=== PATIENT | female | born 1940 | race Caucasian/White ===

== ENCOUNTER → 2017-07-16 13:58 | Outpatient (CLI) | payer MEDICARE, BC, SELFPAY ==
--- NOTE | 2017-07-16 14:00 | HPBI_ITS ---
MAMMOGRAPHY - BILATERAL SCREENING REASON FOR EXAM: Female, 76 years old. Routine annual screening examination. PERTINENT HISTORY: Non-contributory. TECHNIQUE: Digital bilateral breast prashanth (3D mammographic acquisition) in the CC and MLO projections. 2-D mediolateral oblique (MLO) and craniocaudad (CC) views of both breasts were obtained. CAD: Full Field Digital Mammography with Computer Added Detection was performed. COMPARISON: Comparison is made with prior examination dated March 19, 2016 and March 17, 2015. FINDINGS: Breast Composition: The breasts are almost entirely fatty. There are no dominant masses or suspicious calcifications. No other significant abnormalities are identified. There has been no significant change since the prior study. HPBI/SCREENING MAMM (CAD), BILAT IMPRESSION: Stable bilateral screening mammogram. Yearly follow-up mammogram recommended. (A) ASSESSMENT CATEGORY: BIRADS Category 1: Negative. A letter regarding these results will be sent to the patient by the facility within 30 days. Approximately 10% of breast cancers are not detected by mammography. A normal mammogram should not delay biopsy of a clinically suspicious abnormality. [id number] Electronically Signed: Yimi Leonard MD at 15:35 EST Tel [phone], Service support ,
== END ==
PROVIDERS: Family Provider Nurse Practitioner Family; PCP Nurse Practitioner Family; Visit Provider Nurse Practitioner Family
DX: Z12.31 Encounter for screening mammogram for malignant neoplasm of breast (principal)
CPT/HCPCS: 77063; 77067

== ENCOUNTER → 2017-07-28 15:03 | Outpatient (CLI) | payer MEDICARE, BC, SELFPAY ==
[2017-07-28 17:09] LABS: Anion Gap 10 (5-15); BUN 28 mg/dL (7-18); BUN/Creat Ratio 18.1 RATIO (10-20); Calcium,Total 8.7 mg/dL (8.5-10.1); Chloride 101 mmol/L (98-107); Creatinine, Serum 1.55 mg/dL (0.55-1.02); EST Glomerular Filtration Rate 35 mL/min (>60); Est Glom Filt Rate - Afr Amer 42 mL/min (>60); Glucose 384 mg/dL (74-106); Potassium 4.2 mmol/L (3.5-5.1); Sodium Level 136 mmol/L (136-145)
[2017-07-28 17:16] LABS: Hemoglobin A1c 8.6 % (4.2-6.3)
[2017-07-28 17:36] LABS: Microalbumin,Random Urine 34.4 mg/L (NO RANGE EST.); Microalbumin:Creatinine Ratio 43.6 mg/g CRE (<30 mg/g CRE)
== END ==
PROVIDERS: Family Provider Nurse Practitioner Family; PCP Nurse Practitioner Family; Visit Provider Internal Medicine
DX: E11.22 Type 2 diabetes mellitus with diabetic chronic kidney disease (principal); N18.3 Chronic kidney disease, stage 3 (moderate)
CPT/HCPCS: 36415; 80048; 82043; 82570; 83036

== ENCOUNTER → 2017-12-08 17:17 | Outpatient (CLI) | payer MEDICARE, BC, SELFPAY ==
[2017-12-08 18:10] LABS: ALB/GLOB Ratio 0.8 RATIO (0.9-2.4); AST(SGOT) 11 U/L (15-37); Alanine Aminotransfer ALT/SGPT 15 U/L (13-56); Albumin, Serum 3.4 g/dL (3.2-5.0); Alkaline Phosphatase 83 U/L (45-117); Anion Gap 10 (5-15); BUN 36 mg/dL (7-18); BUN/Creat Ratio 21.6 RATIO (10-20); Calcium,Total 8.9 mg/dL (8.5-10.1); Chloride 106 mmol/L (98-107); Creatinine, Serum 1.67 mg/dL (0.55-1.02); EST Glomerular Filtration Rate 32 mL/min (>60); Est Glom Filt Rate - Afr Amer 38 mL/min (>60); Globulin 4.3 g/dL (2.2-4.2); Glucose 81 mg/dL (74-106); Potassium 4.2 mmol/L (3.5-5.1); Protein, Total 7.7 g/dL (6.4-8.2); Sodium Level 141 mmol/L (136-145)
[2017-12-08 18:15] LABS: Erythrocyte Sedimentation Rate 48 mm/hr (0-30)
[2017-12-08 18:42] LABS: Absolute Lymphocyte Count 1.55 X10^3/ul (0.83-4.51); Basophil# 0.02 X10^3/uL; Basophil% 0.2 % (0-1); Eosinophil# 0.07 X10^3/uL; Eosinophils% 0.6 % (0-5); Hematocrit 35.9 % (37-47); Hemoglobin 11.8 g/dl (12.0-15.0); Lymphocyte # 1.55 X10^3/ul (4.0); Lymphocyte % 13.5 % (19-41); Mean Corp Hgb Conc 32.9 g/gl (32-36); Mean Corpuscular Hgb 29.6 pg (27.0-32.0); Mean Corpuscular Volume 90.2 fL (81-99); Mean Platelet Vol. 9.4 fl (6.2-12.0); Monocyte# 0.81 X10^3/uL; Neutrophil # 8.98 X10^3/uL (2.7-7.7); Neutrophil % 78.1 % (47-70); RBC Distribution Width CV 12.8 % (11.6-14.6); Red Blood Count 3.98 M/mm3 (4.2-5.4); White Blood Count 11.5 K/mm3 (4.4-11.0)
[2017-12-08 18:46] LABS: Differential Indicated SCAN CRITERIA MET; POSITIVE COUNT YES; POSITIVE DIFFERENTIAL NO; POSITIVE MORPHOLOGY NO
[2017-12-08 18:59] LABS: Hemoglobin A1c 9.2 % (4.2-6.3)
[2017-12-08 20:12] LABS: Platelet Estimate ADEQUATE (ADEQ)
== END ==
PROVIDERS: Family Provider Family Medicine; PCP Family Medicine; Visit Provider Podiatrist
DX: L03.119 Cellulitis of unspecified part of limb (principal)
CPT/HCPCS: 80053; 83036; 85025; 85652; 86140

== ENCOUNTER 2017-12-16 08:23 | Outpatient (RCR) | payer MEDICARE, BC, SELFPAY ==
[2017-12-16 08:54] VITALS: BP 155/66; PULSE 88; RESP 18; TEMP 36.3; BMI 26.5
--- NOTE | 2017-12-16 09:52 | PCM.WC.HP ---
(1) Leg swelling Status: Chronic Current Visit: Yes Code(s): M79.89 - Other specified soft tissue disorders (2) Edema of both legs Status: Chronic Current Visit: Yes Code(s): R60.0 - Localized edema (3) Chronic venous insufficiency Status: Chronic Current Visit: Yes Code(s): I87.2 - Venous insufficiency (chronic) (peripheral) (4) Venous stasis dermatitis of both lower extremities Status: Chronic Current Visit: Yes Code(s): I87.2 - Venous insufficiency (chronic) (peripheral) (5) Dependent edema Status: Chronic Current Visit: Yes Code(s): R60.9 - Edema, unspecified (6) Type 2 diabetes mellitus Status: Chronic Current Visit: No Code(s): E11.9 - Type 2 diabetes mellitus without complications (7) History of colon cancer Status: Chronic Current Visit: No Code(s): Z85.038 - Personal history of other malignant neoplasm of large intestine (8) History of uterine cancer Status: Chronic Current Visit: No Code(s): Z85.42 - Personal history of malignant neoplasm of other parts of uterus (9) Glaucoma Status: Chronic Current Visit: No Code(s): H40.9 - Unspecified glaucoma (10) History of skin cancer Status: Chronic Current Visit: No Code(s): Z85.828 - Personal history of other malignant neoplasm of skin (11) GERD (gastroesophageal reflux disease) Status: Chronic Current Visit: No Code(s): K21.9 - Gastro-esophageal reflux disease without esophagitis (12) Hypertension Status: Chronic Current Visit: No Code(s): I10 - Essential (primary) hypertension (13) Diabetes Status: Chronic Current Visit: No Code(s): E11.9 - Type 2 diabetes mellitus without complications (14) Hyperlipidemia Status: Chronic Current Visit: No Code(s): E78.5 - Hyperlipidemia, unspecified (15) Macular degeneration Status: Chronic Current Visit: No Code(s): H35.30 - Unspecified macular degeneration History of Present Illness Date of Service: 12/16/17 Chief Complaint: Bilateral lower extremity swelling and edema; chronic venous insufficiency; dependent edema, chronic venous stasis dermatitis History of Wound: This is a 77-year-old diabetic white female with multiple medical problems. She presents with a 2-3 month history of swelling, edema, and found dermatitic changes in the lower extremities bilaterally. In recent months, the patient has begun sleeping in a recliner. She claims to be relatively active, but spends long periods each day in an idle sitting position. She has recently been treated for cellulitis by her local candle molder hand, and is currently taking Augmentin. She denies a history of thrombophlebitis. Past Medical History Past Medical History: Chronic Problems (Last Updated 07/08/17 @ 11:08 by Terri Ramos) Leg swelling (Chronic) Edema of both legs (Chronic) Chronic venous insufficiency (Chronic) Venous stasis dermatitis of both lower extremities (Chronic) Dependent edema (Chronic) Hyperlipidemia (Chronic) Macular degeneration (Chronic) CKD (chronic kidney disease), stage III (Chronic) Type 2 diabetes mellitus (Chronic) History of colon cancer (Chronic) History of uterine cancer (Chronic) Glaucoma (Chronic) History of skin cancer (Chronic) Seasonal allergies (Chronic) GERD (gastroesophageal reflux disease) (Chronic) Hypertension (Chronic) Diabetes (Chronic) Past Medical History: The patient's history is negative for myocardial infarction, congestive heart failure, renal disease, pulmonary disease, and thyroid disease. Her history is positive for diabetes mellitus, colon cancer, basal cell cancer, hypertension, hyperlipidemia, glaucoma, and macular degeneration. Surgical History: - - The patient has previously undergone hysterectomy. She has a history of partial colectomy for colon cancer. She has had basal cell cancers excised. Allergies/Adverse Reactions: Allergies No Known Allergies Allergy (Verified 12/16/17 09:08) Home Medications: Ambulatory Orders Medication Instructions Recorded lisinopril 20 mg tablet 20 mg PO QDAY #90 tab 06/20/17 glimepiride 4 mg tablet 4 mg PO BID #120 tab 07/21/17 sitagliptin 100 mg tablet 100 mg PO QDAY #90 tab 07/29/17 Aspirin E.C. [Ecotrin] 81 mg PO DAILY@0800 12/16/17 Brimonidine 0.15% [Alphagan P 1 drop OPHTHALMIC BID 12/16/17 0.15%] Dorzolamide 2% [Trusopt] 1 drop EACH EYE BID 12/16/17 Latanoprost 0.005% [Xalatan 1 drop EACH EYE QHS 12/16/17 Opthalmic] Potassium Chloride [K-Dur] 10 meq PO DAILY 12/16/17 Triamterene/Hydrochlorothiazid 1 each PO DAILY 12/16/17 [Triamterene-Hctz 37.5-25 mg Cp] Vit C/Vit E AC/Lut/Copper/Zinc 2 cap PO DAILY 12/16/17 [Preservision Lutein Softgel] - Family History Paternal Family History: Family History (Last Updated 07/08/17 @ 11:08 by Terri Ramos) Mother Heart disease Father Parkinsons Social History: The patient is and lives with her . 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 She denies use of alcohol and tobacco products. Lives: Spouse/ Significant Other Smoking Status: Never smoker Tobacco Use: Non-smoker Alcohol: None Drugs: None Review of Systems Constitutional: Denies: Chills, Fever, Weight Change Eyes: Denies: Pain, Vision Change HEENT: Denies: Difficulty Hearing, Difficulty Swallowing, Sinus Congestion Cardiovascular: Denies: Chest Pain, Palpitations Respiratory: Denies: Cough, Shortness of Breath Gastrointestinal: Denies: Diarrhea, Nausea, Vomiting Genitourinary: Denies: Dysuria, Hematuria Endocrine: Denies: Heat/ Cold Intolerance, Polydipsia, Polyuria Hematologic/ Lymphatic: Denies: Easy Bruising, Easy Bleeding - Physical Exam Vital Signs Temp Pulse Resp BP 97.3 F L 88 18 155/66 H 12/16/17 08:54 12/16/17 08:54 12/16/17 08:54 12/16/17 08:54 General: Alert, Oriented x3, Cooperative, No apparent distress, Well developed, Well nourished HEENT: Atraumatic, PERRLA, EOMI, Normocephalic Oral: Moist Mucosa, No Gingival or Mucosal Lesions/ Ulcerations Neck: Supple, No JVD, Negative Carotid Bruits, Negative Hepatojugular Reflux, No Nodes, No Nuchal Rigidity, Trachea Midline Lungs: Clear to auscultation, Normal air movement, No rhonchi, No wheeze, No rales Cardiovascular: Regular rate, Regular Rhythm, Normal S1, Normal S2, No murmurs Abdomen: Soft, Non Tender, Non-Distended Extremities: No clubbing, No cyanosis, No Calf Tenderness, Edema, - - Moderate swelling and edema is noted in the lower extremities bilaterally. A diffuse, erythematous dermatitis is noted in the lower extremities bilaterally in the gaiter areas. There are no sylvia open wounds or ulcerations. Circumference measurements are documented elsewhere. Wound Measurements and Assessment WC - Nurse 1 - General Ulcer Measurement Start: 12/16/17 08:41 Freq: Status: Active Protocol: Activity Type Activity Date Activity User E-Sign Co-Sign Detail Recorded Client Recorded Date Recorded By Document 12/16/17 08:54 [id number] 12/16/17 09:08 12/16/17 08:54 Wound Center Nurse 1 [Edema Assessment] -Lower Limb Edema Present Yes -Right Calf (cm) 41.0 -Right Ankle (cm) 25.6 -Left Calf (cm) 44.2 -Left Ankle (cm) 25.6 WC - Nurse 2 - General Ulcer CM Notes Start: 12/16/17 08:41 Freq: Status: Active Protocol: Activity Type Activity Date Activity User E-Sign Co-Sign Detail Recorded Client Recorded Date Recorded By Document 12/16/17 09:29 [id number] 12/16/17 09:49 12/16/17 09:29 Pain Scale: 0-10 Numeric [Pain] -Is Patient Pain Free? Yes Musculoskeletal: No Muscle Wasting Neurological: Cranial nerves II-XII grossly intact, Neuro grossly intact Psych/Mental Status: Normal Affect, Appropriate, Alert and oriented to time, place, person, mood and affect Debridement Note Post-Debridement Measurements/Treatment WC - Nurse 2 - General Ulcer CM Notes Start: 12/16/17 08:41 Freq: Status: Active Protocol: Activity Type Activity Date Activity User E-Sign Co-Sign Detail Recorded Client Recorded Date Recorded By Document 12/16/17 09:29 [id number] 12/16/17 09:49 12/16/17 09:29 Pain Scale: 0-10 Numeric Is Patient Pain Free? Yes No debridement was completed today Assessment/Plan Active Problems (Last Updated 07/08/17 @ 11:08 by Terri Ramos) Leg swelling (Chronic) Edema of both legs (Chronic) Chronic venous insufficiency (Chronic) Venous stasis dermatitis of both lower extremities (Chronic) Dependent edema (Chronic) Assessment: This is a 77-year-old female with multiple medical problems, which have been documented above. She presents with 2-3 months of swelling, edema, and dermatitic changes in the lower extremities bilaterally. 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 The patient sleeps in a recliner, with her legs in a dependent position. She spends long hours each day in an idle sitting position. She claims to be relatively active, however. The patient has undergone laboratory studies, with results as follows: White blood count 11.5, hemoglobin 11.8, hematocrit 35.9, platelets TNP; sodium 141, potassium 4.2, chloride 106, BUN 36, creatinine 1.67, calcium 8.9, total protein 7.7, albumin 3.4, total bilirubin 0.50, AST 11, ALT 15, alkaline phosphatase 83, cholesterol 171, triglycerides 155. A noninvasive lower extremity arterial study was performed in March 2017, revealing normal ankle-brachial indices bilaterally, but evidence of small vessel disease bilaterally. Plan: The patient, and her at the bedside, have been instructed in lifestyle modification. She has been advised to sleep on a flat surface at night. In this manner, legs will be elevated to heart level. Leg elevation has been encouraged even during daytime hours, with elevation to heart level, or higher. Activity has been encouraged. The patient has been discouraged from prolonged idle sitting. We are to obtain a noninvasive lower extremity arterial study and venous duplex examination. These will be scheduled as soon as possible. We are to implement a moderate degree of compression to the lower extremities by means of multilayer Unna boot, which will be applied conservatively and without excessive compression at this point. The patient is return in 1 week for reassessment. Influenza vaccine was not administered today. Patient is not a smoker. She stands 5 feet 10 inches tall. She weighs 185 pounds. BMI is 26.5, which places the patient is an overweight category. Weight loss has been encouraged, and collaboration with the patient's primary care physician.
--- NOTE | 2017-12-16 09:57 | HP.PCM_ITS ---
(1) Leg swelling Status: Chronic Current Visit: Yes Code(s): M79.89 - Other specified soft tissue disorders (2) Edema of both legs Status: Chronic Current Visit: Yes Code(s): R60.0 - Localized edema (3) Chronic venous insufficiency Status: Chronic Current Visit: Yes Code(s): I87.2 - Venous insufficiency ( chronic) (peripheral) (4) Venous stasis dermatitis of both lower extremities Status: Chronic Current Visit: Yes Code(s): I87.2 - Venous insufficiency ( chronic) (peripheral) (5) Dependent edema Status: Chronic Current Visit: Yes Code(s): R60.9 - Edema, unspecified (6) Type 2 diabetes mellitus Status: Chronic Current Visit: No Code(s): E11.9 - Type 2 diabetes mellitus without complications (7) History of colon cancer Status: Chronic Current Visit: No Code(s): Z85.038 - Personal history of other malignant neoplasm of large intestine (8) History of uterine cancer Status: Chronic Current Visit: No Code(s): Z85.42 - Personal history of malignant neoplasm of other parts of uterus (9) Glaucoma Status: Chronic Current Visit: No Code(s): H40.9 - Unspecified glaucoma (10) History of skin cancer Status: Chronic Current Visit: No Code(s): Z85.828 - Personal history of other malignant neoplasm of skin (11) GERD (gastroesophageal reflux disease) Status: Chronic Current Visit: No Code(s): K21.9 - Gastro-esophageal reflux disease without esophagitis (12) Hypertension Status: Chronic Current Visit: No Code(s): I10 - Essential (primary) hypertension (13) Diabetes Status: Chronic Current Visit: No Code(s): E11.9 - Type 2 diabetes mellitus without complications (14) Hyperlipidemia Status: Chronic Current Visit: No Code(s): E78.5 - Hyperlipidemia, unspecified (15) Macular degeneration Status: Chronic Current Visit: No Code(s): H35.30 - Unspecified macular degeneration History of Present Illness Date of Service: 12/16/17 Chief Complaint: Bilateral lower extremity swelling and edema; chronic venous insufficiency; dependent edema, chronic venous stasis dermatitis History of Wound: This is a 77-year-old diabetic white female with multiple medical problems. She presents with a 2-3 month history of swelling, edema, and found dermatitic changes in the lower extremities bilaterally. In recent months, the patient has begun sleeping in a recliner. She claims to be relatively active, but spends long periods each day in an idle sitting position. She has recently been treated for cellulitis by her local bead supervisor, and is currently taking Augmentin. She denies a history of thrombophlebitis. Past Medical History Past Medical History: Chronic Problems (Last Updated 07/08/17 @ 11:08 by Terri Ramos) Leg swelling (Chronic) Edema of both legs (Chronic) Chronic venous insufficiency (Chronic) Venous stasis dermatitis of both lower extremities (Chronic) Dependent edema (Chronic) Hyperlipidemia (Chronic) Macular degeneration (Chronic) CKD (chronic kidney disease), stage III (Chronic) Type 2 diabetes mellitus (Chronic) History of colon cancer (Chronic) History of uterine cancer (Chronic) Glaucoma (Chronic) History of skin cancer (Chronic) Seasonal allergies (Chronic) GERD (gastroesophageal reflux disease) (Chronic) Hypertension (Chronic) Diabetes (Chronic) Past Medical History: The patient's history is negative for myocardial infarction, congestive heart failure, renal disease, pulmonary disease, and thyroid disease. Her history is positive for diabetes mellitus, colon cancer, basal cell cancer, hypertension, hyperlipidemia, glaucoma, and macular degeneration. Surgical History: - - The patient has previously undergone hysterectomy. She has a history of partial colectomy for colon cancer. She has had basal cell cancers excised. Allergies/Adverse Reactions: Allergies No Known Allergies Allergy (Verified 12/16/17 09:08) Home Medications: Ambulatory Orders Medication Instructions Recorded lisinopril 20 mg tablet 20 mg PO QDAY #90 tab 06/20/17 glimepiride 4 mg tablet 4 mg PO BID #120 tab 07/21/17 sitagliptin 100 mg tablet 100 mg PO QDAY #90 tab 07/29/17 Aspirin E.C. [Ecotrin] 81 mg PO DAILY@0800 12/16/17 Brimonidine 0.15% [Alphagan P 1 drop OPHTHALMIC BID 12/16/17 0.15%] Dorzolamide 2% [Trusopt] 1 drop EACH EYE BID 12/16/17 Latanoprost 0.005% [Xalatan 1 drop EACH EYE QHS 12/16/17 Opthalmic] Potassium Chloride [K-Dur] 10 meq PO DAILY 12/16/17 Triamterene/Hydrochlorothiazid 1 each PO DAILY 12/16/17 [Triamterene-Hctz 37.5-25 mg Cp] Vit C/Vit E AC/Lut/Copper/Zinc 2 cap PO DAILY 12/16/17 [Preservision Lutein Softgel] - Family History Paternal Family History: Family History (Last Updated 07/08/17 @ 11:08 by Terri Ramos) Mother Heart disease Father Parkinsons Social History: The patient is and lives with her . 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 She denies use of alcohol and tobacco products. Lives: Spouse/ Significant Other Smoking Status: Never smoker Tobacco Use: Non-smoker Alcohol: None Drugs: None Review of Systems Constitutional: Denies: Chills, Fever, Weight Change Eyes: Denies: Pain, Vision Change HEENT: Denies: Difficulty Hearing, Difficulty Swallowing, Sinus Congestion Cardiovascular: Denies: Chest Pain, Palpitations Respiratory: Denies: Cough, Shortness of Breath Gastrointestinal: Denies: Diarrhea, Nausea, Vomiting Genitourinary: Denies: Dysuria, Hematuria Endocrine: Denies: Heat/ Cold Intolerance, Polydipsia, Polyuria Hematologic/ Lymphatic: Denies: Easy Bruising, Easy Bleeding - Physical Exam Vital Signs Temp Pulse Resp BP 97.3 F L 88 18 155/66 H 12/16/17 08:54 12/16/17 08:54 12/16/17 08:54 12/16/17 08:54 General: Alert, Oriented x3, Cooperative, No apparent distress, Well developed, Well nourished HEENT: Atraumatic, PERRLA, EOMI, Normocephalic Oral: Moist Mucosa, No Gingival or Mucosal Lesions/ Ulcerations Neck: Supple, No JVD, Negative Carotid Bruits, Negative Hepatojugular Reflux, No Nodes, No Nuchal Rigidity, Trachea Midline Lungs: Clear to auscultation, Normal air movement, No rhonchi, No wheeze, No rales Cardiovascular: Regular rate, Regular Rhythm, Normal S1, Normal S2, No murmurs Abdomen: Soft, Non Tender, Non-Distended Extremities: No clubbing, No cyanosis, No Calf Tenderness, Edema, - - Moderate swelling and edema is noted in the lower extremities bilaterally. A diffuse, erythematous dermatitis is noted in the lower extremities bilaterally in the gaiter areas. There are no sylvia open wounds or ulcerations. Circumference measurements are documented elsewhere. Wound Measurements and Assessment WC - Nurse 1 - General Ulcer Measurement Start: 12/16/17 08:41 Freq: Status: Active Protocol: Activity Type Activity Date Activity User E-Sign Co-Sign Detail Recorded Client Recorded Date Recorded By Document 12/16/17 08:54 [id number] 12/16/17 09:08 12/16/17 08:54 Wound Center Nurse 1 [Edema Assessment] -Lower Limb Edema Present Yes -Right Calf (cm) 41.0 -Right Ankle (cm) 25.6 -Left Calf (cm) 44.2 -Left Ankle (cm) 25.6 WC - Nurse 2 - General Ulcer CM Notes Start: 12/16/17 08:41 Freq: Status: Active Protocol: Activity Type Activity Date Activity User E-Sign Co-Sign Detail Recorded Client Recorded Date Recorded By Document 12/16/17 09:29 [id number] 12/16/17 09:49 12/16/17 09:29 Pain Scale: 0-10 Numeric [Pain] -Is Patient Pain Free? Yes Musculoskeletal: No Muscle Wasting Neurological: Cranial nerves II-XII grossly intact, Neuro grossly intact Psych/Mental Status: Normal Affect, Appropriate, Alert and oriented to time, place, person, mood and affect Debridement Note Post-Debridement Measurements/Treatment WC - Nurse 2 - General Ulcer CM Notes Start: 12/16/17 08:41 Freq: Status: Active Protocol: Activity Type Activity Date Activity User E-Sign Co-Sign Detail Recorded Client Recorded Date Recorded By Document 12/16/17 09:29 [id number] 12/16/17 09:49 12/16/17 09:29 Pain Scale: 0-10 Numeric Is Patient Pain Free? Yes No debridement was completed today Assessment/Plan Active Problems (Last Updated 07/08/17 @ 11:08 by Terri Ramos) Leg swelling (Chronic) Edema of both legs (Chronic) Chronic venous insufficiency (Chronic) Venous stasis dermatitis of both lower extremities (Chronic) Dependent edema (Chronic) Assessment: This is a 77-year-old female with multiple medical problems, which have been documented above. She presents with 2-3 months of swelling, edema, and dermatitic changes in the lower extremities bilaterally. 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 The patient sleeps in a recliner, with her legs in a dependent position. She spends long hours each day in an idle sitting position. She claims to be relatively active, however. The patient has undergone laboratory studies, with results as follows: White blood count 11.5, hemoglobin 11.8, hematocrit 35.9, platelets TNP; sodium 141, potassium 4.2, chloride 106, BUN 36, creatinine 1.67 , calcium 8.9, total protein 7.7, albumin 3.4, total bilirubin 0.50, AST 11, ALT 15, alkaline phosphatase 83, cholesterol 171, triglycerides 155. A noninvasive lower extremity arterial study was performed in March 2017, revealing normal ankle-brachial indices bilaterally, but evidence of small vessel disease bilaterally. Plan: The patient, and her at the bedside, have been instructed in lifestyle modification. She has been advised to sleep on a flat surface at night. In this manner, legs will be elevated to heart level. Leg elevation has been encouraged even during daytime hours, with elevation to heart level, or higher. Activity has been encouraged. The patient has been discouraged from prolonged idle sitting. We are to obtain a noninvasive lower extremity arterial study and venous duplex examination. These will be scheduled as soon as possible. We are to implement a moderate degree of compression to the lower extremities by means of multilayer Unna boot, which will be applied conservatively and without excessive compression at this point. The patient is return in 1 week for reassessment. Influenza vaccine was not administered today. Patient is not a smoker. She stands 5 feet 10 inches tall. She weighs 185 pounds. BMI is 26.5, which places the patient is an overweight category. Weight loss has been encouraged, and collaboration with the patient's primary care physician.
== END 2017-12-16 23:59 ==
LOC: WC 08:23
PROVIDERS: Family Provider Family Medicine; PCP Family Medicine; Visit Provider Surgery
DX: I89.0 Lymphedema, not elsewhere classified (principal); M79.89 Other specified soft tissue disorders; R60.0 Localized edema; I87.2 Venous insufficiency (chronic) (peripheral); Z85.038 Personal history of other malignant neoplasm of large intestine; Z85.42 Personal history of malignant neoplasm of other parts of uterus; K21.9 Gastro-esophageal reflux disease without esophagitis; E78.5 Hyperlipidemia, unspecified; H35.30 Unspecified macular degeneration; E11.22 Type 2 diabetes mellitus with diabetic chronic kidney disease; I12.9 Hypertensive chronic kidney disease with stage 1 through stage 4 chronic kidney disease, or unspecified chronic kidney disease; N18.3 Chronic kidney disease, stage 3 (moderate)
CPT/HCPCS: 29580; 99213; G0463

== ENCOUNTER 2017-12-30 10:15 | Outpatient (RCR) | payer MEDICARE, BC, SELFPAY ==
[2017-12-17 01:35] VITALS: BP 155/66; PULSE 88; RESP 18; TEMP 36.3
[2017-12-19 12:03] VITALS: BP 155/83; PULSE 92; RESP 18; TEMP 35.7
[2017-12-26 15:29] VITALS: BP 155/75; PULSE 85; RESP 20; TEMP 36.6
[2017-12-30 10:55] VITALS: BP 115/73; PULSE 79; RESP 16; TEMP 36.3
--- NOTE | 2017-12-30 12:25 | PCM.WC.HP ---
(1) Leg swelling Status: Chronic Current Visit: Yes Code(s): M79.89 - Other specified soft tissue disorders (2) Edema of both legs Status: Chronic Current Visit: Yes Code(s): R60.0 - Localized edema (3) Chronic venous insufficiency Status: Chronic Current Visit: Yes Code(s): I87.2 - Venous insufficiency (chronic) (peripheral) (4) Venous stasis dermatitis of both lower extremities Status: Chronic Current Visit: Yes Code(s): I87.2 - Venous insufficiency (chronic) (peripheral) (5) Dependent edema Status: Chronic Current Visit: Yes Code(s): R60.9 - Edema, unspecified (6) Hyperlipidemia Status: Chronic Current Visit: No Code(s): E78.5 - Hyperlipidemia, unspecified (7) Macular degeneration Status: Chronic Current Visit: No Code(s): H35.30 - Unspecified macular degeneration (8) CKD (chronic kidney disease), stage III Status: Chronic Current Visit: No Code(s): N18.3 - Chronic kidney disease, stage 3 (moderate) (9) Type 2 diabetes mellitus Status: Chronic Current Visit: No Code(s): E11.9 - Type 2 diabetes mellitus without complications (10) History of colon cancer Status: Chronic Current Visit: No Code(s): Z85.038 - Personal history of other malignant neoplasm of large intestine (11) History of uterine cancer Status: Chronic Current Visit: No Code(s): Z85.42 - Personal history of malignant neoplasm of other parts of uterus (12) Glaucoma Status: Chronic Current Visit: No Code(s): H40.9 - Unspecified glaucoma (13) History of skin cancer Status: Chronic Current Visit: No Code(s): Z85.828 - Personal history of other malignant neoplasm of skin (14) History of pneumonia Status: Acute Current Visit: No Code(s): Z87.01 - Personal history of pneumonia (recurrent) (15) Seasonal allergies Status: Chronic Current Visit: No Code(s): J30.2 - Other seasonal allergic rhinitis (16) GERD (gastroesophageal reflux disease) Status: Chronic Current Visit: No Code(s): K21.9 - Gastro-esophageal reflux disease without esophagitis (17) Hypertension Status: Chronic Current Visit: No Code(s): I10 - Essential (primary) hypertension (18) Diabetes Status: Chronic Current Visit: No Code(s): E11.9 - Type 2 diabetes mellitus without complications History of Present Illness Date of Service: 12/30/17 Chief Complaint: Bilateral lower extremity swelling and edema; chronic venous insufficiency; dependent edema, chronic venous stasis dermatitis History of Wound: This is a 77-year-old diabetic white female with multiple medical problems. She presented with a 2-3 month history of swelling, edema, and dermatitic changes in the lower extremities bilaterally. In recent months, the patient has begun sleeping in a recliner. She claims to be relatively active, but spends long periods each day in an idle sitting position. 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 She denies a history of thrombophlebitis. Past Medical History Past Medical History: Chronic Problems (Last Updated 07/08/17 @ 11:08 by Terri Ramos) Leg swelling (Chronic) Edema of both legs (Chronic) Chronic venous insufficiency (Chronic) Venous stasis dermatitis of both lower extremities (Chronic) Dependent edema (Chronic) Hyperlipidemia (Chronic) Macular degeneration (Chronic) CKD (chronic kidney disease), stage III (Chronic) Type 2 diabetes mellitus (Chronic) History of colon cancer (Chronic) History of uterine cancer (Chronic) Glaucoma (Chronic) History of skin cancer (Chronic) Seasonal allergies (Chronic) GERD (gastroesophageal reflux disease) (Chronic) Hypertension (Chronic) Diabetes (Chronic) Surgical History: - - The patient has previously undergone hysterectomy. She has a history of partial colectomy for colon cancer. She has had basal cell cancers excised. Allergies/Adverse Reactions: Allergies No Known Allergies Allergy (Verified 12/16/17 09:08) Home Medications: Ambulatory Orders Medication Instructions Recorded lisinopril 20 mg tablet 20 mg PO QDAY #90 tab 06/20/17 glimepiride 4 mg tablet 4 mg PO BID #120 tab 07/21/17 sitagliptin 100 mg tablet 100 mg PO QDAY #90 tab 07/29/17 Aspirin E.C. [Ecotrin] 81 mg PO DAILY@0800 12/16/17 Brimonidine 0.15% [Alphagan P 1 drop OPHTHALMIC BID 12/16/17 0.15%] Dorzolamide 2% [Trusopt] 1 drop EACH EYE BID 12/16/17 Latanoprost 0.005% [Xalatan 1 drop EACH EYE QHS 12/16/17 Opthalmic] Potassium Chloride [K-Dur] 10 meq PO DAILY 12/16/17 Triamterene/Hydrochlorothiazid 1 each PO DAILY 12/16/17 [Triamterene-Hctz 37.5-25 mg Cp] Vit C/Vit E AC/Lut/Copper/Zinc 2 cap PO DAILY 12/16/17 [Preservision Lutein Softgel] Smoking Status: Never smoker Tobacco Use: Non-smoker Review of Systems Constitutional: Denies: Chills, Fever, Weight Change Eyes: Denies: Pain, Vision Change HEENT: Denies: Difficulty Hearing, Difficulty Swallowing, Sinus Congestion Cardiovascular: Denies: Chest Pain, Palpitations Respiratory: Denies: Cough, Shortness of Breath Gastrointestinal: Denies: Diarrhea, Nausea, Vomiting Genitourinary: Denies: Dysuria, Hematuria Endocrine: Denies: Heat/ Cold Intolerance, Polydipsia, Polyuria Hematologic/ Lymphatic: Denies: Easy Bruising, Easy Bleeding - Physical Exam Vital Signs Temp Pulse Resp BP 97.3 F L 79 16 115/73 12/30/17 10:55 12/30/17 10:55 12/30/17 10:55 12/30/17 10:55 General: Alert, Oriented x3, Cooperative, No apparent distress, Well developed, Well nourished HEENT: Atraumatic, PERRLA, EOMI, Normocephalic Oral: Moist Mucosa Neck: No JVD Lungs: Normal air movement Abdomen: Non-Distended Extremities: No clubbing, No cyanosis, No edema, No Calf Tenderness, - - There has been marked improvement in the patient's physical findings. There is no significant swelling or edema in her lower extremities. The dermatitic changes in the lower extremities are resolved. There is no erythema. There is no sign of infection or cellulitis. There are no open wounds. Skin: No rashes, No breakdown Wound Measurements and Assessment WC - Nurse 1 - General Ulcer Measurement Start: 12/19/17 12:02 Freq: Status: Active Protocol: Activity Type Activity Date Activity User E-Sign Co-Sign Detail Recorded Client Recorded Date Recorded By Document 12/30/17 10:[address] [facility] [id number] 12/30/17 11:[address] [facility] 12/30/17 10:55 Wound Center Nurse 1 [Edema Assessment] -Lower Limb Edema Present No -Right Calf (cm) 36 -Right Ankle (cm) 24.4 -Left Calf (cm) 36.3 -Left Ankle (cm) 22.5 WC - Nurse 2 - General Ulcer CM Notes Start: 12/19/17 12:02 Freq: Status: Active Protocol: Activity Type Activity Date Activity User E-Sign Co-Sign Detail Recorded Client Recorded Date Recorded By Document 12/30/17 12:07 [id number] 12/30/17 12:14 12/30/17 12:07 Pain Scale: 0-10 Numeric [Pain] -Is Patient Pain Free? Yes Neurological: Cranial nerves II-XII grossly intact, Neuro grossly intact Psych/Mental Status: Normal Affect, Appropriate, Alert and oriented to time, place, person, mood and affect Debridement Note Post-Debridement Measurements/Treatment WC - Nurse 2 - General Ulcer CM Notes Start: 12/19/17 12:02 Freq: Status: Active Protocol: Activity Type Activity Date Activity User E-Sign Co-Sign Detail Recorded Client Recorded Date Recorded By Document 12/30/17 12:07 [id number] 12/30/17 12:14 12/30/17 12:07 Pain Scale: 0-10 Numeric Is Patient Pain Free? Yes No debridement was completed today Assessment/Plan Active Problems (Last Updated 07/08/17 @ 11:08 by Terri Ramos) Leg swelling (Chronic) Edema of both legs (Chronic) Chronic venous insufficiency (Chronic) Venous stasis dermatitis of both lower extremities (Chronic) Dependent edema (Chronic) Assessment: This is a 77-year-old female with multiple medical problems, which have been documented above. She presented with 2-3 months of swelling, edema, and dermatitic changes in the lower extremities bilaterally. 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 The patient sleeps in a recliner, with her legs in a dependent position. She spends long hours each day in an idle sitting position. She claims to be relatively active, however. The patient has undergone laboratory studies, with results as follows: White blood count 11.5, hemoglobin 11.8, hematocrit 35.9, platelets TNP; sodium 141, potassium 4.2, chloride 106, BUN 36, creatinine 1.67, calcium 8.9, total protein 7.7, albumin 3.4, total bilirubin 0.50, AST 11, ALT 15, alkaline phosphatase 83, cholesterol 171, triglycerides 155. A noninvasive lower extremity arterial study was performed and reveals normal or supranormal ankle-brachial indices bilaterally. Digital-brachial indices are diminished bilaterally. Triphasic waveforms are noted at ankle level bilaterally. A venous duplex examination is also been performed, which reveals incompetence of the right great saphenous vein below the knee, incompetence of the left great saphenous vein, and an incompetent left calf seal mixer vein. Plan: The patient, and her family at the bedside, have been instructed in lifestyle modification. She has been advised to sleep on a flat surface at night. In this manner, legs will be elevated to heart level. Leg elevation has been encouraged even during daytime hours, with elevation to heart level, or higher. Activity has been encouraged. The patient has been discouraged from prolonged idle sitting. The patient has tolerated an Unna boot without difficulty thus far. Given the evidence for distal smallvessel arterial occlusive disease in the lower extremities, prescription has been provided for graduated compression stockings of 18-25 mmHg compression, with instructions to wear on a daily basis. The patient is to return in 2 weeks for reassessment. At that time, she continues to do well, it is anticipated that she will be discharged. Influenza vaccine was not administered today. Patient is not a smoker. She stands 5 feet 10 inches tall. She weighs 185 pounds. BMI is 26.5, which places the patient is an overweight category. Weight loss has been encouraged, and collaboration with the patient's primary care physician.
--- NOTE | 2018-01-04 18:49 | LEAS ---
Arterial Study - Arterial Study Arterial Study: This is a 77-year-old female with a history of hyperlipidemia and diabetes mellitus. Suspecting the presence of atherosclerotic peripheral arterial occlusive disease, the patient was brought to the noninvasive vascular laboratory at this time for the purpose of bilateral noninvasive lower extremity arterial assessment. Doppler signal assessment was used to evaluate the pulses at ankle level bilaterally. The posterior tibial and dorsalis pedis pulses were triphasic bilaterally. Segmental limb pressures were obtained bilaterally. The right ankle pressure, as determined by posterior tibial pulse, was measured at 173 mmHg. The right ankle pressure, as determined by dorsalis pedis pulse, was measured at 199 mmHg. The right digital pressure was measured at 61 mmHg. The left ankle pressure, as determined by posterior tibial pulse, was measured at 187 mmHg. The left ankle pressure, as determined by dorsalis pedis pulse, was measured at 179 mmHg. The left digital pressure was measured at 85 mmHg. Pulse-volume recordings were obtained bilaterally and segmentally. Waveform amplitudes appeared to be satisfactory at low thigh, calf, and ankle levels bilaterally. Digital waveforms demonstrated diminished amplitudes bilaterally. Resting ankle-brachial indices were calculated bilaterally. The resting right ankle-brachial index was calculated to be 1.47. The resting left ankle-brachial index was calculated to be 1.39. Digital-brachial indices were calculated bilaterally. The right digital-brachial index was calculated to be 0.45. The left digital-brachial index was calculated to be 0.63. Impression: Based upon the findings of this resting noninvasive lower extremity arterial study, arterial perfusion appears to be relatively normal to ankle level bilaterally. Triphasic waveforms were noted at ankle level bilaterally, which suggests relatively normal perfusion to ankle level bilaterally. The resting right ankle-brachial index is supra-normal, suggestive of arterial calcification, for which clinical correlation is advised. The resting left ankle-brachial index is normal. The right digital-brachial index is moderately diminished, consistent with moderate, distal, small-vessel arterial occlusive disease in the right lower extremity. The left digital-brachial index is mildly diminished, suggestive of mild, distal, small-vessel arterial occlusive disease in the left lower extremity. Clinical correlation is advised.
== END 2018-01-16 23:59 ==
LOC: WC 10:15
PROVIDERS: Family Provider Family Medicine; PCP Family Medicine; Visit Provider Surgery
DX: I87.2 Venous insufficiency (chronic) (peripheral) (principal); R60.0 Localized edema; I73.9 Peripheral vascular disease, unspecified; E11.9 Type 2 diabetes mellitus without complications; I12.9 Hypertensive chronic kidney disease with stage 1 through stage 4 chronic kidney disease, or unspecified chronic kidney disease; E11.22 Type 2 diabetes mellitus with diabetic chronic kidney disease; N18.3 Chronic kidney disease, stage 3 (moderate); E78.5 Hyperlipidemia, unspecified; K21.9 Gastro-esophageal reflux disease without esophagitis
CPT/HCPCS: 29580; 93923; 93970; 99211; 99212; 99214; G0463

== ENCOUNTER → 2018-09-24 15:01 | Outpatient (CLI) | payer MEDICARE, BC, SELFPAY ==
[2018-09-24 18:23] LABS: ALB/GLOB Ratio 0.9 RATIO (0.9-2.4); AST(SGOT) 9 U/L (15-37); Alanine Aminotransfer ALT/SGPT 18 U/L (13-56); Albumin, Serum 3.3 g/dL (3.2-5.0); Alkaline Phosphatase 88 U/L (45-117); Anion Gap 8 (5-15); BUN 27 mg/dL (7-18); BUN/Creat Ratio 20.6 RATIO (10-20); Calcium,Total 8.8 mg/dL (8.5-10.1); Chloride 108 mmol/L (98-107); Cholesterol 173 mg/dL (200); Creatinine, Serum 1.31 mg/dL (0.55-1.02); EST Glomerular Filtration Rate 42 mL/min (>60); Est Glom Filt Rate - Afr Amer 51 mL/min (>60); Globulin 3.6 g/dL (2.2-4.2); Glucose 269 mg/dL (74-106); High Density Lipoprotein 66 mg/dL; Protein, Total 6.9 g/dL (6.4-8.2); Sodium Level 142 mmol/L (136-145); Triglycerides 160 mg/dL; Very Low Density Lipoprotein 32 mg/dL (5-40)
== END ==
PROVIDERS: Family Provider Family Medicine; PCP Family Medicine; Visit Provider Family Medicine
DX: E11.9 Type 2 diabetes mellitus without complications (principal); I10 Essential (primary) hypertension
CPT/HCPCS: 36415; 80053; 80061

== ENCOUNTER 2018-11-22 14:22 | Inpatient (IN) | payer MEDICARE, BC, SELFPAY ==
[2018-11-22 14:23] VITALS: BP 167/99; PULSE 95; RESP 17; TEMP 36.8; O2SAT 95
[2018-11-22 14:39] VITALS: BP 162/94; PULSE 89; RESP 16; RESP 31; TEMP 36.8; O2SAT 97; O2SAT 99
--- NOTE | 2018-11-22 15:03 | ED.VIS.GEN ---
History of Present Illness Chief Complaint: Confusion Informant: Patient, Family Onset: Month(s), - Context: Gradual Onset - 6 months Narrative: Per discussion with nursing at bedside, brought his in for 6-month history of increasing confusion and agitation. He has been trying to get her to go see a physician which she has refused. Her behaviors are becoming more difficult to manage at home and he is unsure if he can take care of her there. Patient does not know why she is at the hospital. She denies pain, nausea, or vomiting. - Past Medical History (1) CKD (chronic kidney disease), stage III Status: Chronic (2) Chronic venous insufficiency Status: Chronic (3) Dependent edema Status: Chronic (4) Diabetes Status: Chronic (5) GERD (gastroesophageal reflux disease) Status: Chronic (6) Glaucoma Status: Chronic (7) History of skin cancer Status: Chronic (8) History of uterine cancer Status: Chronic (9) Hyperlipidemia Status: Chronic (10) Hypertension Status: Chronic (11) Type 2 diabetes mellitus Status: Chronic Past Medical History - Allergies and Home Meds Allergies/Adverse Reactions: Allergies No Known Allergies Allergy (Verified 11/22/18 14:26) Primary Care Physician: Lyly Maya MD [Primary Care Provider] - Prior records reviewed: Yes Past Medical History: - - Reviewed Surgical History: - - The patient has previously undergone hysterectomy. She has a history of partial colectomy for colon cancer. She has had basal cell cancers excised. Lives: Spouse/ Significant Other Smoking Status: Never smoker Review of Systems General: Denies: Chills, Fever Cardiovascular: Denies: Chest pain, Palpitations Respiratory: Denies: Dyspnea, Cough Gastrointestinal: Denies: Abdominal pain, Nausea, Vomiting, Diarrhea Genitourinary: Denies: Dysuria Neurological: Denies: Headache Physical Exam Vital Signs/Narrative: Vital Signs Temp Pulse Resp BP Pulse Ox 11/22/18 14:39 98.3 F 89 16 162/94 H 97 11/22/18 14:23 98.3 F 95 17 167/99 H 95 Inital Vital Signs reviewed: Yes General: Well nourished, Well developed Eyes: Perrl Neck: Supple Cardiovascular: Regular rate, Regular rhythm Respiratory: No distress, CTA bilaterally Abdomen: Soft, Nontender, Normal bowel sounds Extremities: Nontender, - - 3+ edema bilateral and symmetric. Skin reveals chronic venous skin changes with mild erythema and warmth. No open lesions or weeping noted. Skin: Normal color Neurological: Alert, - - She is alert but confused as to why she is in the emergency room. She is unable provide her history. Diagnostic/Tx/Re-eval Abnormal Lab Results 11/22/18 11/22/18 11/22/18 15:09 15:09 16:28 WBC 8.0 RBC 3.89 L Hgb 11.7 L Hct 34.9 L MCV 89.7 MCH 30.1 MCHC 33.5 RDW 13.3 RDW Differential 43.6 Plt Count 255 MPV 8.9 Immature Gran % (Auto) 0.100 Neut % (Auto) 72.9 H Lymph % (Auto) 18.6 L Nelson % (Auto) 7.0 Eos % (Auto) 1.2 Baso % (Auto) 0.2 Absolute Neuts (auto) 5.9 Absolute Lymphs (auto) 1.49 Total Counted Not Reportable Sodium 142 Potassium 3.5 Chloride 105 Carbon Dioxide 28.0 Anion Gap 9 BUN 27 H Creatinine 1.43 H Estim Creat Clear Calc 0.00 Est GFR (MDRD) Af Amer 46 L Est GFR (MDRD) Non-Af 38 L BUN/Creatinine Ratio 18.9 Glucose 264 H Calcium 9.2 Total Bilirubin 0.40 Direct Bilirubin 0.14 AST 12 L ALT 16 Alkaline Phosphatase 89 Total Protein 7.5 Albumin 3.8 Globulin 3.7 Urine Color Yellow Urine Clarity Clear Urine pH 7.0 Ur Specific [place] 1.005 Urine Protein Negative Urine Glucose (UA) Normal Urine Ketones Negative Urine Occult Blood Negative Urine Nitrite Negative Urine Bilirubin Negative Urine Urobilinogen Normal Ur Leukocyte Esterase Negative Urine RBC 0 SEEN Urine WBC 0 SEEN Ur Squamous Epith Cells 0-5 SEEN Urine Bacteria 0 SEEN Hyaline Casts 0-5 SEEN Urine Mucus 0 SEEN Clinical Impression(s) from Imaging Studies Brain CT 11/22/18 15:05 IMPRESSION: Chronic involutional changes of the brain. Electronically Signed: Dionna Frances MD at 17:09 EDT Tel , Service support , Chest X-Ray 11/22/18 15:10 IMPRESSION: No acute cardiopulmonary process. Electronically Signed: Dionna Frances MD at 16:02 EDT Tel , Service support , - EKG Initial EKG Interpretation: - - Sinus rhythm with underlying motion artifact. No acute ischemia obvious. - Medical Decision Making Patient presents with a several month history of progressive symptoms, likely dementia. Patient has reached the point where her is unable to care for her and keep her safe. He is open to placement for her. I will have the patient seen by hospitalist for admission tonight and social work will work on disposition tomorrow. Patient was given 0.5 mg of Ativan to help relax her in the emergency room to allow for appropriate testing. ED Disposition - Plan for ED Patient: Disposition: Acute Care [facility] Diagnosis: Confusion Referrals: Lyly Maya MD [Primary Care Provider] -
--- NOTE | 2018-11-22 15:05 | EKG12_ITS ---
Test Reason : CONFUSION Blood Pressure : / mmHG Vent. Rate : 073 BPM Atrial Rate : 073 BPM P-R Int : 186 ms QRS Dur : 076 ms QT Int : 402 ms P-R-T Axes : -09 018 034 degrees QTc Int : 442 ms Somatic/motion artifact Normal sinus rhythm Confirmed by WINIFRED PEREZ, DMITRY ([id number]), editor newspaper MIKA EVANS ([id number]) on 11/26/2018 11:51:44 AM Referred By: CODY Confirmed By:DMITRY VITALE MD
--- NOTE | 2018-11-22 15:05 | CT_ITS ---
STUDY: CT BRAIN WITHOUT CONTRAST REASON FOR EXAM: Female, 78 years old. Increased confusion. RADIATION DOSAGE (If Supplied By Facility): CTDIvol = ( 44.99 ) mGy, DLP = ( 1490.98 ) mGycm TECHNIQUE: Transaxial CT imaging of the brain was performed without administration of intravenous contrast material. Individualized dose optimization techniques were used for this CT. COMPARISON: No relevant priors. FINDINGS: Normal soft tissue structures. Normal calvarium. There is mild cerebral atrophy with widening of the extra-axial spaces and ventricular dilatation. Normal white matter tracts of the cerebral hemispheres. Normal basal ganglia and thalami. Normal brainstem. There is mild cerebellar atrophy. There is no intracranial hemorrhage. There are no findings of an acute ischemic infarction. Normal visualized paranasal sinuses. CT/Brain/Head without Contrast IMPRESSION: Chronic involutional changes of the brain. Electronically Signed: Dionna Frances MD at 17:09 EDT Tel , Service support ,
--- NOTE | 2018-11-22 15:10 | RAD_ITS ---
STUDY: X-RAY CHEST REASON FOR EXAM: Female, 78 years old. Increased confusion. TECHNIQUE: Single frontal view of the chest. COMPARISON: None. FINDINGS: There is no focal consolidation. Normal size heart. Normal mediastinum and tamiko. Normal visualized pulmonary arteries. Normal visualized aortic arch and descending thoracic aorta. There are diffuse degenerative changes of the visualized thoracic spine. Normal visualized ribs, clavicles, and shoulders. There is no demonstrated abnormality of the visualized soft tissue structures of the upper abdomen. RAD/Chest 1 View (Portable) IMPRESSION: No acute cardiopulmonary process. Electronically Signed: Dionna Frances MD at 16:02 EDT Tel , Service support ,
[2018-11-22 15:29] LABS: Absolute Lymphocyte Count 1.49 X10^3/ul (0.83-4.51); Absolute Neutrophil Count 5.9 X10^3/uL (2.0-7.7); Basophil# 0.02 X10^3/uL; Basophil% 0.2 % (0-1); Eosinophils% 1.2 % (0-5); Hematocrit 34.9 % (37-47); Hemoglobin 11.7 g/dl (12.0-15.0); Lymphocyte # 1.49 X10^3/ul (4.0); Lymphocyte % 18.6 % (19-41); Mean Corp Hgb Conc 33.5 g/gl (32-36); Mean Corpuscular Hgb 30.1 pg (27.0-32.0); Mean Corpuscular Volume 89.7 fL (81-99); Mean Platelet Vol. 8.9 fl (6.2-12.0); Monocyte# 0.56 X10^3/uL; Neutrophil # 5.85 X10^3/uL (2.7-7.7); Neutrophil % 72.9 % (47-70); POSITIVE COUNT NO; POSITIVE DIFFERENTIAL NO; POSITIVE MORPHOLOGY NO; Platelet Count 255 K/mm3 (150-450); RBC Distribution Width CV 13.3 % (11.6-14.6); RBC Distribution Width SD 43.6 fl (35.1-43.9); Red Blood Count 3.89 M/mm3 (4.2-5.4)
[2018-11-22] MEDS: LORazepam 2 MG/ML Syringe 0.5 MG IV (15:33)
[2018-11-22 15:42] LABS: AST(SGOT) 12 U/L (15-37); Alanine Aminotransfer ALT/SGPT 16 U/L (13-56); Albumin, Serum 3.8 g/dL (3.2-5.0); Alkaline Phosphatase 89 U/L (45-117); Anion Gap 9 (5-15); BUN 27 mg/dL (7-18); BUN/Creat Ratio 18.9 RATIO (10-20); Bilirubin, Direct 0.14 mg/dL (0.00-0.30); Calcium,Total 9.2 mg/dL (8.5-10.1); Chloride 105 mmol/L (98-107); Creatinine, Serum 1.43 mg/dL (0.55-1.02); EST Glomerular Filtration Rate 38 mL/min (>60); Est Glom Filt Rate - Afr Amer 46 mL/min (>60); Globulin 3.7 g/dL (2.2-4.2); Glucose 264 mg/dL (74-106); Potassium 3.5 mmol/L (3.5-5.1); Protein, Total 7.5 g/dL (6.4-8.2); Sodium Level 142 mmol/L (136-145)
[2018-11-22 16:34] LABS: Bacteria 0 SEEN /hpf (None Seen); Mucous, Urine 0 SEEN /hpf (<or=2+); Red Blood Cells-Urine 0 SEEN /hpf (0-5); White Blood Cells 0 SEEN /hpf (0-5)
[2018-11-22 16:37] LABS: Color, Urine Yellow (Yellow); Glucose, Dipstick Normal (Normal); Ketone-Dipstick Negative (Negative); Leukocyte Esterase-Dipstick Negative /ul (Negative); Nitrite-Dipstick Negative (Negative); Occult Blood-Urine Negative /ul (Negative); Protein-Dipstick Negative (Negative); Specific Gravity, Urine 1.005 (1.002-1.030); Urine Bilirubin Dipstick Negative (Negative); Urine Clarity Clear (Clear); Urine Urobilinogen Normal (Normal)
[2018-11-22 16:46] LABS: Squamous Epithelial Cells - UA 0-5 SEEN /hpf (5-10)
[2018-11-22 16:48] LABS: Hyaline Cast 0-5 SEEN /lpf (0-5)
[2018-11-22 17:01] VITALS: BP 166/68; PULSE 78; RESP 18; O2SAT 97
--- NOTE | 2018-11-22 17:48 | HP.PCM_ITS ---
History of Present Illness Date of Admission: 11/22/18 Chief Complaint: altered mental status The patient is a 78 year old F with past medical history as listed. She was admitted through the ED on 11/22/2018 with a complaint of worsening altered mental status. Patient was very confused and could not give much of a history. History was mainly taken from her , nephew and niece in law. According to , patient has been getting progressively confused over the past 2 years. She has outbursts of anger and sometimes is quite vulgar in his speech which is totally unlike her. states that she was given a diagnosis of dementia by her primary care doctor recently. However they noted that over the past 2 weeks, her mentation has been getting much worse and she kept complaining Asman for everything. She was very confused and could not really Will any conversation with them and often have flight of ideas. is her primary caregiver and has been unable to care for her and so he brought her to the ED. He denied any white stepping gait and stated that her gait was more of a s huffling gait. Should he have any fever or chills but has been noted that she had lower extremity swelling and redness. She had been following up with the wound care center but had defaulted. She did not have any frequency of urination. Review of symptoms otherwise negative. Vitals were stable and labs were significant for creatinine of 1.40 which is around her baseline. CBC was unremarkable. Brain CT showed chronic involutional changes of the brain. X-ray showed no acute cardia pulmonary process. She has been admitted to be managed for worsening dementia. She will need placement. [] Past Medical History Past Medical History (Chronic Problems): Chronic Problems (Last Updated 07/08/17 @ 11:08 by Terri Ramos) Leg swelling (Chronic) Edema of both legs (Chronic) Chronic venous insufficiency (Chronic) Venous stasis dermatitis of both lower extremities (Chronic) Dependent edema (Chronic) Hyperlipidemia (Chronic) Macular degeneration (Chronic) CKD (chronic kidney disease), stage III (Chronic) Type 2 diabetes mellitus (Chronic) History of colon cancer (Chronic) History of uterine cancer (Chronic) Glaucoma (Chronic) History of skin cancer (Chronic) Seasonal allergies (Chronic) GERD (gastroesophageal reflux disease) (Chronic) Hypertension (Chronic) Diabetes (Chronic) Medical History: Medical History (Last Updated 07/08/17 @ 11:08 by Terri Ramos) History of colon cancer (Chronic) Z85.038 History of uterine cancer (Chronic) Z85.42 Glaucoma (Chronic) H40.9 History of skin cancer (Chronic) Z85.828 History of pneumonia (Acute) Z87.01 Seasonal allergies (Chronic) J30.2 GERD (gastroesophageal reflux disease) (Chronic) K21.9 Hypertension (Chronic) I10 Diabetes (Chronic) E11.9 History of hysterectomy Z98.890, Z90.710 Allergies No Known Allergies Allergy (Verified 11/22/18 14:26) Home Medications: Ambulatory Orders Medication Instructions Recorded lisinopril 20 mg tablet 20 mg PO QDAY #90 tab 06/20/17 glimepiride 4 mg tablet 4 mg PO BID #120 tab 07/21/17 sitagliptin 100 mg tablet 100 mg PO QDAY #90 tab 07/29/17 Aspirin E.C. [Ecotrin] 81 mg PO DAILY@0800 12/16/17 Brimonidine 0.15% [Alphagan P 1 drop OPHTHALMIC BID 12/16/17 0.15%] Dorzolamide 2% [Trusopt] 1 drop EACH EYE BID 12/16/17 Latanoprost 0.005% [Xalatan 1 drop EACH EYE QHS 12/16/17 Opthalmic] Potassium Chloride [K-Dur] 10 meq PO DAILY 12/16/17 Triamterene/Hydrochlorothiazid 1 each PO DAILY 12/16/17 [Triamterene-Hctz 37.5-25 mg Cp] Vit C/Vit E AC/Lut/Copper/Zinc 2 cap PO DAILY 12/16/17 [Preservision Lutein Softgel] Surgical History: Surgical History (Last Updated 07/08/17 @ 11:08 by Terri Ramos) History of partial colectomy Z98.890, Z90.49 Surgical History: - - The patient has previously undergone hysterectomy. She has a history of partial colectomy for colon cancer. She has had basal cell cancers excised. 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 History: endometrial cancer Lives: Spouse/ Significant Other Smoking Status: Never smoker Alcohol: None Drugs: None - *Family History Paternal Family History: Family History (Last Updated 07/08/17 @ 11:08 by Terri Ramos) Mother Heart disease Father Parkinsons History Items: Dementia - father Review of Systems Constitutional: Reports: Chills, Fever, Weight Change Unable to obtain accurate/complete ROS d/t: patient is very confused and has flight of ideas VTE Information - Inpt Only VTE Present on Admission: No VTE Pharm Prophylaxis ordered?: Yes Patient Problems: Active and Suspected Problems (Last Updated 07/08/17 @ 11:08 by Terri Ramos) Confusion (Acute) - Physical Exam General: Alert, Confused, Disoriented HEENT: Atraumatic, PERRLA, EOMI, Normocephalic Oral: Dry Mucosa Neck: Supple, No JVD, Negative Carotid Bruits Lungs: Clear to auscultation, Normal air movement, No rhonchi, No wheeze Cardiovascular: Regular rate, Regular Rhythm, Normal S1, Normal S2, No murmurs Abdomen: Bowel Sounds Present, Soft, Non Tender, Non-Distended, No Hepato- splenomegaly Extremities: No clubbing, No cyanosis, No edema, Capillary Refill Less than 3 Seconds Skin: No rashes, No breakdown Musculoskeletal: No Tenderness to Palpation of Joints or Extremities Lymphatic: No Cervical, Supraclavicular, or Inguinal Adenopathy Neurological: Cranial nerves II-XII grossly intact Psych/Mental Status: Delusions, - - very confused. Alert and oriented to only person Vital Signs Temp Pulse Resp BP Pulse Ox 98.3 F 78 18 166/68 H 97 11/22/18 14:39 11/22/18 17:01 11/22/18 17:01 11/22/18 17:01 11/22/18 17:01 Oxygen Delivery Method Room Air Weight: 0 oz Body Mass Index (BMI) 0.0 Laboratory Tests Past 24 Hrs 11/22/18 11/22/18 11/22/18 15:09 15:09 16:28 WBC 8.0 RBC 3.89 L Hgb 11.7 L Hct 34.9 L MCV 89.7 MCH 30.1 MCHC 33.5 RDW 13.3 RDW Differential 43.6 Plt Count 255 MPV 8.9 Immature Gran % (Auto) 0.100 Neut % (Auto) 72.9 H Lymph % (Auto) 18.6 L [place] % (Auto) 7.0 Eos % (Auto) 1.2 Baso % (Auto) 0.2 Absolute Neuts (auto) 5.9 Absolute Lymphs (auto) 1.49 Total Counted Not Reportable Sodium 142 Potassium 3.5 Chloride 105 Carbon Dioxide 28.0 Anion Gap 9 BUN 27 H Creatinine 1.43 H Estim Creat Clear Calc 0.00 Est GFR (MDRD) Af Amer 46 L Est GFR (MDRD) Non-Af 38 L BUN/Creatinine Ratio 18.9 Glucose 264 H Calcium 9.2 Total Bilirubin 0.40 Direct Bilirubin 0.14 AST 12 L ALT 16 Alkaline Phosphatase 89 Total Protein 7.5 Albumin 3.8 Globulin 3.7 Urine Color Yellow Urine Clarity Clear Urine pH 7.0 Ur Specific [place] 1.005 Urine Protein Negative Urine Glucose (UA) Normal Urine Ketones Negative Urine Occult Blood Negative Urine Nitrite Negative Urine Bilirubin Negative Urine Urobilinogen Normal Ur Leukocyte Esterase Negative Urine RBC 0 SEEN Urine WBC 0 SEEN Ur Squamous Epith Cells 0-5 SEEN Urine Bacteria 0 SEEN Hyaline Casts 0-5 SEEN Urine Mucus 0 SEEN Diagnostic Data Brain CT 11/22/18 15:05 IMPRESSION: Chronic involutional changes of the brain. Electronically Signed: Dionna Frances MD at 17:09 EDT Tel , Service support , Chest X-Ray 11/22/18 15:10 IMPRESSION: No acute cardiopulmonary process. Electronically Signed: Dionna Frances MD at 16:02 EDT Tel , Service support , Assessment/Plan All Active Problems (Last Updated 07/08/17 @ 11:08 by Terri Ramos) Confusion (Acute) History of pneumonia (Acute) 78 y/o admitted with a complaint of worsening confusion 1. Acute on chronic metabolic encephalopathy due to worsening dementia * has been diagnosed with dementia a few months ago by her pCP, per niece. * says her confusion and paranoia has worsened,a nd he is now unable to care for her at home. is sole wound care center consultant * admit to Med surg * CBC was unremarkable. * will check TSH, Vitamin B12 * UA showed no evidence of infection * CT brain showed only chronic involutional changes * PT/OT consult * fall precautions * will need placement 2.Debility due to worsening dementia: as under 1. 3. Mild Cellulitis of LE * has swelling, and erythema of both LEs. Minimal tenderness. Used to follow up at wound clinic but has defaulted * will give PO doxycycline 100mg bid. * SAMEER wraps 4. Diabetes mellitus: on glimepiride and sitagliptin. ISS. Accuchecks ACHS 5. CKD 3: Cr is 1.43, which is around her baseline. WIll monitor 6. Hyerptension: * BP elevated at 160s and 170s systolic since admission. * on lisinopril and MAxzide * IV hdyralazine prn DVT prophylaxis: lovenox Code Visit Inpatient E&M: 56613 Init Hosp L3
--- NOTE | 2018-11-22 17:52 | NURSING ---
MED SURG [facility]
[2018-11-22 18:22] VITALS: BP 170/59; RESP 17; O2SAT 98
[2018-11-22 18:32] VITALS: BP 109/72; PULSE 78; RESP 15; TEMP 36.8; O2SAT 99
[2018-11-22 19:10] VITALS: BP 144/83; PULSE 77; RESP 16; TEMP 36.7; O2SAT 100; BMI 28.2
[2018-11-22 19:54] VITALS: BMI 28.3
[2018-11-22 20:00] LABS: Thyroid Stim Hormone (TSH) 1.84 uIU/mL (0.358-3.74)
[2018-11-22 20:41] LABS: Bedside Glucose 124 mg/dL (70-110)
[2018-11-22] MEDS: Doxycycline 100 MG CAPSULE PO (23:39)
[2018-11-22 23:50] LABS: Bedside Glucose 133 mg/dL (70-110)
[2018-11-23 02:09] VITALS: BP 145/57; PULSE 81; RESP 16; TEMP 36.5; O2SAT 99
[2018-11-23 05:57] LABS: Absolute Lymphocyte Count 1.72 X10^3/ul (0.83-4.51); Absolute Neutrophil Count 5.7 X10^3/uL (2.0-7.7); Basophil# 0.02 X10^3/uL; Basophil% 0.2 % (0-1); Eosinophil# 0.14 X10^3/uL; Eosinophils% 1.7 % (0-5); Hematocrit 35.4 % (37-47); Hemoglobin 11.8 g/dl (12.0-15.0); Lymphocyte # 1.72 X10^3/ul (4.0); Lymphocyte % 20.9 % (19-41); Mean Corp Hgb Conc 33.3 g/gl (32-36); Mean Corpuscular Hgb 29.9 pg (27.0-32.0); Mean Corpuscular Volume 89.8 fL (81-99); Mean Platelet Vol. 8.8 fl (6.2-12.0); Monocyte# 0.69 X10^3/uL; Monocyte% 8.4 % (0-10); Neutrophil # 5.66 X10^3/uL (2.7-7.7); Neutrophil % 68.7 % (47-70); Platelet Count 251 K/mm3 (150-450); RBC Distribution Width CV 13.2 % (11.6-14.6); RBC Distribution Width SD 43.1 fl (35.1-43.9); Red Blood Count 3.94 M/mm3 (4.2-5.4); White Blood Count 8.2 K/mm3 (4.4-11.0)
[2018-11-23 06:09] LABS: Anion Gap 6 (5-15); BUN 23 mg/dL (7-18); BUN/Creat Ratio 19.8 RATIO (10-20); Calcium,Total 8.7 mg/dL (8.5-10.1); Chloride 108 mmol/L (98-107); Creatinine, Serum 1.16 mg/dL (0.55-1.02); EST Glomerular Filtration Rate 48 mL/min (>60); Est Glom Filt Rate - Afr Amer 58 mL/min (>60); Estimated Creatinine Clearance 40.32 ml/min; Glucose 140 mg/dL (74-106); Potassium 3.6 mmol/L (3.5-5.1); Sodium Level 143 mmol/L (136-145)
[2018-11-23 06:31] LABS: POSITIVE COUNT NO; POSITIVE DIFFERENTIAL NO; POSITIVE MORPHOLOGY NO
[2018-11-23 08:00] VITALS: BP 147/74; PULSE 88; RESP 18; TEMP 36.7; O2SAT 97
[2018-11-23] MEDS: Doxycycline 100 MG CAPSULE PO ×2 (08:59→22:01)
[2018-11-23] MEDS: Enoxaparin 30 MG/0.3 ML Syringe SC (08:59)
[2018-11-23 09:52] LABS: Vitamin B12 265 pg/mL (211-911)
--- NOTE | 2018-11-23 10:54 | PN_ITS ---
Patient Problems: Active and Suspected Problems (Last Updated 07/08/17 @ 11:08 by Terri Ramos) Confusion (Acute) Subjective: Patient seen and examined. She is very agitated this morning. She had a rough night and was not able to get much sleep. Patient is very suspicious and crying and refusing to take her medication. Unable to do review of systems on account of extreme agitation. Vitals/I&O's: Vital Signs Temp Pulse Resp BP Pulse Ox 98.1 F 88 18 147/74 H 97 11/23/18 08:00 11/23/18 08:00 11/23/18 08:00 11/23/18 08:00 11/23/18 08:00 Oxygen Delivery Method Room Air Weight: 185 lb 13.595 oz Body Mass Index (BMI) 28.2 Intake and Output for Last 24 Hours 11/21/18 11/22/18 11/23/18 23:59 23:59 23:59 Intake Total 150 / 150 Output Total 300 / 300 Balance -150 / -150 General: Alert, Confused, Disoriented, very agitated HEENT: Atraumatic, PERRLA, EOMI, Normocephalic Oral: Dry Mucosa Neck: Supple, No JVD, Negative Carotid Bruits Lungs: Clear to auscultation, Normal air movement, No rhonchi, No wheeze Cardiovascular: Regular rate, Regular Rhythm, Normal S1, Normal S2, No murmurs Abdomen: Bowel Sounds Present, Soft, Non Tender, Non-Distended, No Hepato- splenomegaly Extremities: No clubbing, No cyanosis, No edema, Capillary Refill Less than 3 Seconds Skin: No rashes, No breakdown Musculoskeletal: No Tenderness to Palpation of Joints or Extremities Lymphatic: No Cervical, Supraclavicular, or Inguinal Adenopathy Neurological: Cranial nerves II-XII grossly intact Psych/Mental Status: Delusions, very confused, agitated and tearful. Laboratory Results 11/22/18 15:09: WBC 8.0, RBC 3.89 L, Hgb 11.7 L, Hct 34.9 L, MCV 89.7, MCH 30.1, MCHC 33.5, RDW 13.3, RDW Differential 43.6, Plt Count 255, MPV 8.9, Immature Gran % (Auto) 0.100, Neut % (Auto) 72.9 H, Lymph % (Auto) 18.6 L, [place] % (Auto) 7.0, Eos % (Auto) 1.2, Baso % (Auto) 0.2, Absolute Neuts (auto) 5.9, Absolute Lymphs (auto) 1.49, Total Counted Not Reportable 11/22/18 15:09: Sodium 142, Potassium 3.5, Chloride 105, Carbon Dioxide 28.0, Anion Gap 9, BUN 27 H, Creatinine 1.43 H, Estim Creat Clear Calc 0.00, Est GFR (MDRD) Af Amer 46 L, Est GFR (MDRD) Non-Af 38 L, BUN/Creatinine Ratio 18.9, Glucose 264 H, Calcium 9.2, Total Bilirubin 0.40, Direct Bilirubin 0.14, AST 12 L, ALT 16, Alkaline Phosphatase 89, Total Protein 7.5, Albumin 3.8, Globulin 3.7 11/22/18 15:09: TSH 1.84 11/22/18 15:09: Vitamin B12 265 11/22/18 16:28: Urine Color Yellow, Urine Clarity Clear, Urine pH 7.0, Ur Specific [place] 1.005, Urine Protein Negative, Urine Glucose (UA) Normal, Urine Ketones Negative, Urine Occult Blood Negative, Urine Nitrite Negative, Urine Bilirubin Negative, Urine Urobilinogen Normal, Ur Leukocyte Esterase Negative, Urine RBC 0 SEEN, Urine WBC 0 SEEN, Ur Squamous Epith Cells 0-5 SEEN, Urine Bacteria 0 SEEN, Hyaline Casts 0-5 SEEN, Urine Mucus 0 SEEN 11/22/18 20:32: POC Glucose 124 H 11/22/18 23:40: POC Glucose 133 H 11/23/18 05:35: WBC 8.2, RBC 3.94 L, Hgb 11.8 L, Hct 35.4 L, MCV 89.8, MCH 29.9, MCHC 33.3, RDW 13.2, RDW Differential 43.1, Plt Count 251, MPV 8.8, Immature Gran % (Auto) 0.100, Neut % (Auto) 68.7, Lymph % (Auto) 20.9, [place] % (Auto) 8.4, Eos % (Auto) 1.7, Baso % (Auto) 0.2, Absolute Neuts (auto) 5.7, Absolute Lymphs (auto) 1.72, Total Counted Not Reportable 11/23/18 05:35: Sodium 143, Potassium 3.6, Chloride 108 H, Carbon Dioxide 29.0, Anion Gap 6, BUN 23 H, Creatinine 1.16 H, Estim Creat Clear Calc 40.32, Est GFR (MDRD) Af Amer 58 L, Est GFR (MDRD) Non-Af 48 L, BUN/Creatinine Ratio 19.8, Glucose 140 H, Calcium 8.[address] 11/22/18 15:05 IMPRESSION: Chronic involutional changes of the brain. Electronically Signed: Dionna Frances MD at 17:09 EDT Tel , Service support , Chest X-Ray 11/22/18 15:10 IMPRESSION: No acute cardiopulmonary process. Electronically Signed: Dionna Frances MD at 16:02 EDT Tel , Service support , Current Medications Dextrose (D50w Syringe) 0 gm IV X1 PRN; Protocol PRN Reason: Hypoglycemia Doxycycline Monohydrate (Doxycycline) 100 mg PO BID WAQAR Stop: 11/27/18 10:01 Last Admin: 11/23/18 08:59 Dose: 100 mg Documented by: Enoxaparin Sodium (Lovenox) 30 mg SC DAILY@1000 WAQAR Last Admin: 11/23/18 08:59 Dose: 30 mg Documented by: Glucagon () 1 mg IM .X1 PRN PRN Reason: Hypoglycemia Haloperidol Lactate (Haldol) 1 mg IV X1 STA Stop: 11/23/18 10:54 Insulin Human Lispro (Humalog Kwikpen (Bkc)) 0 unit SC ACHS WAQAR; Protocol Last Admin: 11/23/18 07:00 Dose: Not Given Documented by: Sodium Chloride () 10 - 40 ml IV UD PRN PRN Reason: SALINE FLUSH Medical Necessity - Tobacco Use Smoking Status: Never smoker Assessment/Plan All Active Problems (Last Updated 07/08/17 @ 11:08 by Terri Ramos) Confusion (Acute) History of pneumonia (Acute) 78 y/o admitted with a complaint of worsening confusion 1. Agitation due to worsening dementia * patient very agitated this morningl. Refusing her medications * IV haldol 1mg once * will start on seroquel once patient is calmer * TSH and vitamin B12 within normal limits * PT/OT on board * fall precautions * will need placement 2.Debility due to worsening dementia: as under 1. 3. Mild Cellulitis of LE * has swelling, and erythema of both LEs. Minimal tenderness. Used to follow up at wound clinic but has defaulted * refusing PO doxycycline. Will give IV doxycycline 100mg bid * SAMEER wraps 4. Diabetes mellitus: on glimepiride and sitagliptin. ISS. Accuchecks ACHS 5. CKD 3: Cr is 1.16 today. 6. Hypertension: * on lisinopril and HCTZ/triamterene * IV hydralazine prn DVT prophylaxis: lovenox Code Visit Inpatient E&M: 38163 Subs Hosp L2
--- NOTE | 2018-11-23 11:04 | NURSING ---
Was asked to see patient for redness to bilateral lower legs. there are currently no open areas. there is some dry skin and appears to be some chronic venous stasis changes rather than cellulitis. patient is very agitated at this time. would recommend elevating legs at this time. will not attempt to wrap with SAMEER wraps at this time d/t agitation. no need for wound care at this time.
[2018-11-23] MEDS: Haloperidol Lactate 5 MG/ML Vial 1 MG IV (11:11)
--- NOTE | 2018-11-23 11:37 | CASEMGMT ---
Addendum entered by Connie Gracia 11/23/18 13:34: Lyly with Crisis states she will work on getting pt placed for pa[facility]-psych. Addendum entered by Connie Gracia 11/23/18 11:53: CHRISTIAN updated that pt's and nephew Papa is requesting to speak to this worker. CHRISTIAN met with pt's Shyam and pt's nephew Papa. Les states second choice for SNF is [facility] and third choice is [facility] CHRISTIAN updated Shyam and Les that physician was agreeable to Crisis evaluating pt to determine if pt is appropriate for [facility]-psych. Shyam and Papa agreeable to pt being evaluated for pawan-psych. Original Note: Social Work Note Per physician pt will need placement at discharge. Pt has worsening dementia with confusion, agitation and anger outbursts. CHRISTIAN met with pt and pt's Shyam and nephew Papa. SW introduced self and role at [facility]. Shyam gave this worker permission to speak to him and Les. Shyam states that he lives with pt in a condo and provided care for pt. Shyam denied DME in the home. Shyam and Papa agreeable to pt going to SNF at discharge. CHRISTIAN explained Medicare guidelines and three midnight stay for Medicare. CHRISTIAN explained that if physician feels pt doesn't require three midnight stay then pt would be private pay at SNF. Shyam states that his first choice for SNF is [facility]. CHRISTIAN explained referral process and that this worker will need to make referral. CHRISTIAN asked Shyam if they have additional choices for SNF in the event that [facility] is unable to accept pt and Shyam states he doesn't. CHRISTIAN educated Shyam and Papa on area SFN and provided Les with list of area SNF and Medicare ratings. Les thanked this worker. CHRISTIAN spoke with RN who states pt would benefit from pawan-psych placement. CHRISTIAN spoke with Physician who is agreeable to referral being made for possible pawan-psych placement. CHRISTIAN placed a call to [facility] and provided referral to Lyly. Lyly states she will be at [facility] within the next hour to evaluate pt. Charge Nurse updated. Plan: Crisis to evaluate pt for possible pawan-psych placement. If pt is not appropriate for pawan-psych then SNF will be needed for pt. SW to continue to follow. Connie Gracia MECHANIC HELPER, [facility]
[2018-11-23 14:00] VITALS: BP 142/62; PULSE 79; RESP 18; TEMP 36.5; O2SAT 98
[2018-11-23 14:15] LABS: Bedside Glucose 171 mg/dL (70-110)
--- NOTE | 2018-11-23 14:20 | CASEMGMT ---
Addendum entered by Connie Gracia 11/23/18 15:15: CHRISTIAN spoke with Lyly at crisis. Per Lyly [facility] is able to accept pt only if they receive copy of HCPOA for pt. Lyly provided fax number for [facility] [phone]. SW reviewed admissions questions, pt's was supposed to bring in documents. CHRISTIAN placed a call to pt's Shyam and left message informing him HCPOA document will need to be brought in to [facility] before [facility] is able to accept pt. Original Note: Social Work Note Per Lyly at Crisis, referral was sent to [facility] for pt. Charge Nurse updated. Connie Gracia CHIEF NURSE, INTERLOCKING AND SIGNAL MECHANIC
[2018-11-23 21:17] VITALS: BP 148/54; PULSE 82; RESP 18; TEMP 36.9; O2SAT 94
[2018-11-23 22:11] LABS: Bedside Glucose 127 mg/dL (70-110)
[2018-11-24 06:41] LABS: Bedside Glucose 133 mg/dL (70-110)
[2018-11-24 08:34] VITALS: BP 153/83; PULSE 85; RESP 16; TEMP 36.3; O2SAT 99
--- NOTE | 2018-11-24 09:37 | CASEMGMT ---
Addendum entered by Connie Gracia 11/24/18 11:35: CHRISTIAN received update by ALEKSANDRA Pardo that she spoke with Antonia and pt has been accepted to [facility] and pt is able to discharge to [facility] today. Charge Nurse updated. CHRISTIAN placed a call to both [facility] and [facility] and earliest transportation could be arranged for pt is 5:00pm through [facility]. CHRISTIAN completed transportation form and given to executive legal secretary. CHRISTIAN placed a call to pt's Shyam and left message informing him of discharge and transportation time. RN updated additional family members. RN updated on transportation time. Plan: Pt to discharge to [facility] today with [facility] transporting via cot at 5:00pm Connie BEAVER, MIGNON Original Note: Social Work Note Per Charge Nurse, POA paperwork was received and faxed to [facility] last night. CHRISTIAN placed a call to [facility] and spoke with Jaime. Jaime confirms that POA paperwork was received and states that this worker will have to talk to coordinator to confirm if [facility] is able to accept pt today. Per Jaime coordinator is not available at this time, CHRISTIAN provided direct number to Jaime and asked coordinator give this worker a call back when available. Plan: [facility] today Connie BEAVER, OPHTHALMIC MEDICAL ASSISTANT
[2018-11-24] MEDS: Doxycycline 100 MG CAPSULE PO (10:37)
[2018-11-24] MEDS: Enoxaparin 30 MG/0.3 ML Syringe SC (10:37)
--- NOTE | 2018-11-24 11:44 | DCINST_ITS ---
- Discharge Diagnoses Current Active Problems: Current Active and Chronic Problems (Last Updated 07/08/17 @ 11:08 by Terri Ramos) Confusion (Acute) You will use the following diet at home:: Cardiac Your food should be the consistency of: Regular Your liquids should be the consistency of: Regular/Thin Discharge Activity: Return to Normal Activity Weight Bearing Status: Weight bearing as tolerated Call your doctor if you observe: Fever of 101 or Higher, Swelling in the ankles Allergies/Adverse Reactions: Allergies No Known Allergies Allergy (Verified 11/22/18 14:26) Medications to take at Discharge Aspirin E.C. [Ecotrin] 81 mg PO DAILY@0800 12/16/17 Brimonidine 0.15% [Alphagan P 0.15%] 1 drop OPHTHALMIC BID 12/16/17 Dorzolamide 2% [Trusopt] 1 drop EACH EYE BID 12/16/17 Latanoprost 0.005% [Xalatan Opthalmic] 1 drop EACH EYE QHS 12/16/17 Potassium Chloride [K-Dur] 10 meq PO DAILY 12/16/17 Triamterene/Hydrochlorothiazid [Triamterene-Hctz 37.5-25 mg Cp] 1 each PO DAILY 12/16/17 Vit C/Vit E AC/Lut/Copper/Zinc [Preservision Lutein Softgel] 2 cap PO DAILY 12/16/17 Glimepiride [Amaryl] 4 mg PO BID 11/22/18 Lisinopril 20 mg PO QDAY 11/22/18 Sitagliptin Phosphate [Januvia] 100 mg PO QDAY 11/22/18 Doxycycline 100 mg PO BID #10 cap 11/24/18 The following prescriptions were given: Doxycycline 100 mg PO BID #10 cap Prescription Printed Primary Care Physician: Lyly Maya MD [Primary Care Provider] - Please follow up with your Primary Care Physician in: one week Test Results: Test results from this visit will be discussed in further detail at your follow- up appointment, if applicable. Proposed Discharge Date: 11/24/18
--- NOTE | 2018-11-24 11:47 | PCM.DC.SUM ---
Discharge Date and Diagnosis - Problem List Patient Problems: Active and Suspected Problems (Last Updated 07/08/17 @ 11:08 by Terri Ramos) Confusion (Acute) Date of Admission: 11/22/18 Date of Discharge: 11/24/18 - Primary Discharge Diagnosis Active and Suspected Problems (Last Updated 07/08/17 @ 11:08 by Terri Ramos) Confusion (Acute) Worsening dementia cellulitis of LEs - Secondary Discharge Diagnosis Chronic Problems (Last Updated 07/08/17 @ 11:08 by Terri Ramos) Leg swelling (Chronic) Edema of both legs (Chronic) Chronic venous insufficiency (Chronic) Venous stasis dermatitis of both lower extremities (Chronic) Dependent edema (Chronic) Hyperlipidemia (Chronic) Macular degeneration (Chronic) CKD (chronic kidney disease), stage III (Chronic) Type 2 diabetes mellitus (Chronic) History of colon cancer (Chronic) History of uterine cancer (Chronic) Glaucoma (Chronic) History of skin cancer (Chronic) Seasonal allergies (Chronic) GERD (gastroesophageal reflux disease) (Chronic) Hypertension (Chronic) Diabetes (Chronic) Hospital Course and Treatment Imaging Results: Diagnostic Data Brain CT 11/22/18 15:05 IMPRESSION: Chronic involutional changes of the brain. Electronically Signed: Dionna Frances MD at 17:09 EDT Tel , Service support , Chest X-Ray 11/22/18 15:10 IMPRESSION: No acute cardiopulmonary process. 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 She was admitted through the ED on 11/22/2018 with a complaint of worsening altered mental status. Patient was very confused and could not give much of a history. History was mainly taken from her , nephew and niece in law. According to , patient has been getting progressively confused over the past 2 years. She has outbursts of anger and sometimes is quite vulgar in his speech which is totally unlike her. states that she was given a diagnosis of dementia by her primary care doctor recently. However they noted that over the past 2 weeks, her mentation has been getting much worse and she kept complaining [place] for everything. She was very confused and could not really Will any conversation with them and often have flight of ideas. is her primary caregiver and has been unable to care for her and so he brought her to the ED. He denied any white stepping gait and stated that her gait was more of a shuffling gait. Should he have any fever or chills but has been noted that she had lower extremity swelling and redness. She had been following up with the wound care center but had defaulted. She did not have any frequency of urination. Review of symptoms otherwise negative. Vitals were stable and labs were significant for creatinine of 1.40 which is around her baseline. CBC was unremarkable. Brain CT showed chronic involutional changes of the brain. X-ray showed no acute cardia pulmonary process. She has been admitted to be managed for worsening dementia and cellulitis of her LE. She was started on p.o. doxycycline. Patient became even more agitated during admission. Mental health crisis was consulted and patient got placement in the [facility] under the care of Dr. Sherry Mora. She was discharged to the [facility] unit on 11/24/2018. Lower extremity swelling and redness came down significantly. She was also discharged on p.o. doxycycline for 5 days. She is to follow-up with her primary care doctor. She will need placement. Patient seen and examined prior to discharge. She was confused but less agitated. Review of systems was otherwise negative. Labs and vitals reviewed. Home medication reviewed and reconciled. o/e: Vital Signs Height 5 ft 8 in Weight: 185 lb 13.595 oz Weight in Pounds 185.8 lbs Pulse Ox 100 Temperature 97.7 F Pulse Rate 97 Respiratory Rate 16 Blood Pressure 185/87 Blood Pressure Position Semi-Fowlers General: Alert, Confused, Disoriented, calm HEENT: Atraumatic, PERRLA, EOMI, Normocephalic Oral: Dry Mucosa Neck: Supple, No JVD, Negative Carotid Bruits Lungs: Clear to auscultation, Normal air movement, No rhonchi, No wheeze Cardiovascular: Regular rate, Regular Rhythm, Normal S1, Normal S2, No murmurs Abdomen: Bowel Sounds Present, Soft, Non Tender, Non-Distended, No Hepato-splenomegaly Extremities: No clubbing, No cyanosis, No edema, Capillary Refill Less than 3 Seconds Skin: No rashes, No breakdown Musculoskeletal: No Tenderness to Palpation of Joints or Extremities Lymphatic: No Cervical, Supraclavicular, or Inguinal Adenopathy Neurological: Cranial nerves II-XII grossly intact Psych/Mental Status: confused Plan as above. Patient Problems: Active and Suspected Problems (Last Updated 07/08/17 @ 11:08 by Terri Ramos) Confusion (Acute) - Physical Exam Vital Signs Temp Pulse Resp BP Pulse Ox 97.4 F L 85 16 153/83 H 99 11/24/18 08:34 11/24/18 08:34 11/24/18 08:34 11/24/18 08:34 11/24/18 08:34 Oxygen Delivery Method Room Air Weight: 185 lb 13.595 oz Body Mass Index (BMI) 28.2 Intake and Output for Last 24 Hours 11/22/18 11/23/18 11/24/18 23:59 23:59 23:59 Intake Total 150 / 150 Output Total 300 / 300 Balance -150 / -150 POC Glucose 11/24/18 11/23/18 11/23/18 06:37 21:59 13:43 POC Glucose 133 H 127 H 171 H Discharge Diet: Low fat/ Low Cholesterol Discharge Activity: Return to Normal Activity Weight Bearing Status: Weight bearing as tolerated Call your doctor if you observe: Fever of 101 or Higher, Swelling in the ankles Home Medications: Medications to take at Discharge Aspirin E.C. [Ecotrin] 81 mg PO DAILY@0800 12/16/17 Brimonidine 0.15% [Alphagan P 0.15%] 1 drop OPHTHALMIC BID 12/16/17 Dorzolamide 2% [Trusopt] 1 drop EACH EYE BID 12/16/17 Latanoprost 0.005% [Xalatan Opthalmic] 1 drop EACH EYE QHS 12/16/17 Potassium Chloride [K-Dur] 10 meq PO DAILY 12/16/17 Triamterene/Hydrochlorothiazid [Triamterene-Hctz 37.5-25 mg Cp] 1 each PO DAILY 12/16/17 Vit C/Vit E AC/Lut/Copper/Zinc [Preservision Lutein Softgel] 2 cap PO DAILY 12/16/17 Glimepiride [Amaryl] 4 mg PO BID 11/22/18 Lisinopril 20 mg PO QDAY 11/22/18 Sitagliptin Phosphate [Januvia] 100 mg PO QDAY 11/22/18 Doxycycline 100 mg PO BID #10 cap 11/24/18 Following Prescrptions Were Given to Patient: Doxycycline 100 mg PO BID #10 cap Prescription Printed Primary Care Physician: Lyly Maya MD [Primary Care Provider] - Please follow up with your Primary Care Physician in: one week Disposition: Psych Hospital or Unit Minutes spent on discharge:: 40 Patient Condition:: Stable Medical Necessity - Tobacco Use Smoking Status: Never smoker Meaningful Use Info Meaningful Use Diagnoses (Choose all that apply): None applicable Code Visit Inpatient E&M: 84534 Disch Hosp
[2018-11-24] MEDS: Insulin Lispro 100 UNIT/ML INSULN.PEN SC ×2 (12:42→16:40)
[2018-11-24 12:45] LABS: Bedside Glucose 208 mg/dL (70-110)
[2018-11-24 14:30] VITALS: BP 185/87; PULSE 97; RESP 16; TEMP 36.5; O2SAT 100
--- NOTE | 2018-11-24 15:35 | NURSING ---
report called RN @ [facility]. [facility] will be picking her up for transport around 1700
[2018-11-24 16:27] VITALS: BP 185/87; PULSE 97
[2018-11-24] MEDS: hydrALAZINE 20 MG/ML Vial 10 MG IV (16:27)
[2018-11-24] MEDS: Lisinopril 20 MG Tablet PO (16:28)
[2018-11-24] MEDS: Triamterene 37.5MG/Hctz 25MG Capsule 1 CAP PO (16:29)
[2018-11-24 16:45] LABS: Bedside Glucose 150 mg/dL (70-110)
[2018-11-24 19:36] VITALS: BP 151/76; PULSE 106; RESP 18; TEMP 36.8; O2SAT 94
== END 2018-11-24 20:25 | DRG 884 ==
LOC: ED 17:40 → MS3 18:20
PROVIDERS: Admitting Provider Student in an Organized Health Care Education/Training Program; Emergency Provider Emergency Medicine; Family Provider Family Medicine; PCP Family Medicine; Visit Provider Student in an Organized Health Care Education/Training Program
DX: F03.90 Unspecified dementia, unspecified severity, without behavioral disturbance, psychotic disturbance, mood disturbance, and anxiety (principal); G93.41 Metabolic encephalopathy; L03.116 Cellulitis of left lower limb; L03.115 Cellulitis of right lower limb; N18.3 Chronic kidney disease, stage 3 (moderate); E11.22 Type 2 diabetes mellitus with diabetic chronic kidney disease; I12.9 Hypertensive chronic kidney disease with stage 1 through stage 4 chronic kidney disease, or unspecified chronic kidney disease; I87.2 Venous insufficiency (chronic) (peripheral); E78.5 Hyperlipidemia, unspecified; H35.30 Unspecified macular degeneration; K21.9 Gastro-esophageal reflux disease without esophagitis; H40.9 Unspecified glaucoma; Z79.84 Long term (current) use of oral hypoglycemic drugs; Z85.828 Personal history of other malignant neoplasm of skin; Z85.038 Personal history of other malignant neoplasm of large intestine; Z85.42 Personal history of malignant neoplasm of other parts of uterus
CPT/HCPCS: 36415; 70450; 71045; 80048; 80076; 81001; 82607; 82962; 84443; 85025; 93005; 97110; 97162; 97166; 97535; 99285; A4216